=== PATIENT | female | born 1990 | race Caucasian/White ===

== ENCOUNTER 2023-05-09 02:28 | Emergency (ER) | payer OTHER ==
[~2023-05-09] VITALS: Ht 167.6 cm; Wt 66.2 kg
[2023-05-09] MEDS ORDERED: methylPREDNISolone SOD SUCC 125 MG/2ML VIAL ONE (03:07)
[2023-05-09] MEDS ORDERED: FAMOTIDINE/PF INJ 20 MG/2 ML VIAL IV ONE (03:07)
[2023-05-09] MEDS: FAMOTIDINE/PF INJ 20 MG/2 ML VIAL IV ONE (03:08)
[2023-05-09] MEDS: methylPREDNISolone SOD SUCC 125 MG/2ML VIAL IV ONE (03:08)
[2023-05-09] MEDS: IV NS 0.9% 1,000 ML BAG IV ONE (03:08)
[2023-05-09 04:37] VITALS: BP 119/75; TEMP 98.1; O2SAT 98
== END 2023-05-09 04:43 | disposition home or self-care (01) ==
LOC: ER 02:35
DX: L50.9 Urticaria, unspecified (principal)
CPT/HCPCS: 99284; 96374; 96361; 96375; J3490; J2930; J7030